=== PATIENT | female | born 1970 | race Caucasian/White ===

== ENCOUNTER 2019-01-31 13:03 | Emergency (ER) | payer SELFPAY ==
[~2019-01-31] VITALS: Ht 157.5 cm; Wt 72.8 kg
[~2019-01-31 13:03] MED LIST: ALBU8.5H8 INH; AZIT250T PO; IBUP800T48 PO; NITR-58 PO; PRED20TA PO
[2019-01-31 13:06] VITALS: BP 152/86; PULSE 80; RESP 16; Ht 157.5 cm; Wt 72.8 kg
[2019-01-31] MEDS ORDERED: NEOM28.33 TP (15:26)
[2019-01-31] MEDS ORDERED: BEN25 PO (15:26)
--- NOTE | 2019-01-31 15:31 | ERD ---
ER Documentation Chief Complaint Chief Complaint rash on face x 3 days after using new cream , no sob HPI 48-year-old female with no reported past medical surgical history, history of allergies who presents with complaint of rash on face over the past 3 days. States she used a new sunscreen SPF 30 and shortly after developed redness and itching to bilateral cheeks on face. Had some itchiness and feeling of flushness to the face but no pain. She otherwise denies shortness of breath, dyspnea, chest pain, fevers, or any other complaints. Time of examination patient is nontoxic appearing. Stable hemodynamics. ROS All systems reviewed and are negative except as per history of present illness. Medications Home Meds Active Scripts Neomycin Linn/Bacitrac Zn/Poly (Neosporin Ointment) 28.3 Gm Oint...g., 28.3 GM TP BID for 3 Days Prov:FERN HILTON PA-C 01/31/19 Diphenhydramine Hcl* (Benadryl*) 25 Mg Cap, 25 MG PO Q6 PRN for ITCHING/RASH, #7 TAB Prov:FERN HILTON PA-C 01/31/19 Albuterol Sulfate* (Proair HFA*) 8.5 Gm Hfa.aer.ad, 2 PUFF INH Q4, #1 INHALER Prov:DYLAN HUNG PA-C 06/21/16 Prednisone* (Prednisone*) 20 Mg Tab, 40 MG PO DAILY for 4 Days, TAB Prov:DYLAN HUNG PA-C 06/21/16 Azithromycin* (Zithromax*) 250 Mg Tablet, 250 MG PO .ZPACK DIRECTED, #6 TAB TAKE 500 MG (2 TABS) THE FIRST DAY THEN 250 MG (1 TAB) DAYS 2-5 Prov:DYLAN HUNG PA-C 06/21/16 Nitrofurantoin Monohyd Macrocr* (Macrobid*) 100 Mg Capsr, 100 MG PO BID for 7 Days, CAP Prov:YARIEL ISBELL [employer] STRATEGY SPECIALIST 12/22/15 Ibuprofen* (Motrin*) 800 Mg Tab, 800 MG PO Q6H PRN for PAIN AND OR ELEVATED TEMP, #30 TAB Prov:YARIEL ISBELL. REGULATORY AFFAIRS STRATEGY SPECIALIST 12/22/15 PMhx/Soc History of Surgery: No Anesthesia Reaction: No Hx Neurological Disorder: No Hx Cardiac Disorders: No Hx Psychiatric Problems: No Hx Miscellaneous Medical Probl: No Hx Alcohol Use: Yes (SOCIALLY) Hx Substance Use: No Hx Tobacco Use: No Smoking Status: Never smoker FmHx Family History: No diabetes, No coronary disease, No other Physical Exam Vitals Vital Signs Date Temp Pulse Resp B/P (MAP) Pulse Ox O2 O2 Flow FiO2 Time Delivery Rate 01/31/19 98.1 80 16 152/86 100 13:06 (108) Physical Exam I have reviewed the triage vital signs. Const: Well nourished, well developed, appears stated age Eyes: PERRL, no conjunctival injection HENT: NCAT, Neck supple without meningismus CV: RRR, Warm, well-perfused extremities RESP: CTAB, Unlabored respiratory effort GI: soft, non-tender, non-distended, no masses MSK: No gross deformities appreciated Skin: Erythema to bilateral cheeks, no extension beyond cheeks, no other rashes noted Neuro: grossly non focal Psych: Appropriate mood and affect. Procedures/MDM 48-year-old female who presents with facial rash after using sunscreen. Symptoms likely represent allergic contact dermatitis. I have low suspicion for systemic process that warrants further emergent evaluation and care. Rash li mited to small area of bilateral cheeks. No respiratory complaints. Will discharge with Benadryl and Neosporin. DISPOSITION PLAN: We discussed follow up with the patient's primary care doctor within 24 to 48 hours. Patient counseled regarding my diagnostic impression and care plan. Prior to discharge all questions answered. Pt agrees with treatment plan and understands strict return precautions. Precautionary instructions provided including instructions to return to the ER if not improving or for any worsening or changing symptoms or concerns. Disclaimer: Inadvertent spelling and grammatical errors are likely due to EHR/dictation software use and do not reflect on the overall quality of patient care. Also, please note that the electronic time recorded on this note does not necessarily reflect the actual time of the patient encounter. Departure Diagnosis: Primary Impression: Contact dermatitis Additional Impression: Contact dermatitis and other eczema due to other chemical prod... Condition: Stable Patient Instructions: Contact Dermatitis Referrals: COMM[facility]ITY CLINICS YOU HAVE RECEIVED A MEDICAL SCREENING EXAM AND THE RESULTS INDICATE THAT YOU DO NOT HAVE A CONDITION THAT REQUIRES URGENT TREATMENT IN THE EMERGENCY DEPARTMENT. FURTHER EVALUATION AND TREATMENT OF YOUR CONDITION CAN WAIT UNTIL YOU ARE SEEN IN YOUR DOCTORS OFFICE WITHIN THE NEXT 1-2 DAYS. IT IS YOUR RESPONSIBILITY TO MAKE AN APPOINTMENT FOR FOLOW-UP CARE. IF YOU HAVE A PRIMARY DOCTOR --you should call your primary doctor and schedule an appointment IF YOU DO NOT HAVE A PRIMARY DOCTOR YOU CAN CALL OUR PHYSICIAN REFERRAL HOTLINE AT IF YOU CAN NOT AFFORD TO SEE A PHYSICIAN YOU CAN CHOSE FROM THE FOLLOWING [facility] [address] [facility] [address] [facility] [facility] [place] [address] [facility] [address] [facility] [address] [facility]. [facility]. [address] Additional Instructions: Call your primary care doctor TOMORROW for an appointment during the next 2-3 days.See the doctor sooner or return here if your condition worsens before your appointment time. FERN HILTON PA-C January 31, 2019 15:31
== END 2019-01-31 15:33 | disposition home or self-care (01) ==
LOC: FTE 13:03
DX: L23.5 Allergic contact dermatitis due to other chemical products (principal)
CPT/HCPCS: 99282